=== PATIENT | male | born 1945 | race Caucasian/White ===

== ENCOUNTER 2016-09-27 09:44 | Emergency (ER) | payer OTHER ==
[~2016-09-27] VITALS: Ht 172.7 cm; Wt 73.0 kg
[~2016-09-27 09:44] MED LIST: 12 HOUR DECONG120 M1 PO; ADVAIR 100/501 DISK IH; ADVAIR 500/501 DISK IH; AEROCHAMBER MA1 EACH MC; ALBUTEROL SULF8.5 GM IH; ASPIRIN81 M1 PO; Aspirin PO; BLOOD PRESSURE; CLONIDINE HCL0.2 MG PO; COMBIVENT200 INHALA IH; Combivent IH; Levaquin PO; MOTRIN800 MG PO; Motrin PO; NASONEX17 GM NS; PLAVIX75 MG PO; PREDNISONE20 MG PO; PREDNISONE50 MG PO; PriLOSEC PO; Proventil,Ventolin H IH; SEROQUEL100 MG PO; SEROQUEL200 MG PO; SINGULAR PO; Symbicort 160-4.5 mc IH; THEO-DUR,THEOC200 MG PO; VENTOLIN HFA18 GM IH; ZITHROMAX Z-PA250 MG PO; ZITHROMAX250 MG PO; Zithromax PO; [UNRECOGNIZED DRUG - OTHER] PO; [UNRECOGNIZED DRUG - REMARK]; predniSONE PO
[2016-09-27 12:06] LABS: TROP-I INTERPRETATION NEGATIVE; TROPONIN-I 0.02 ng/mL (0.0-0.30)
[2016-09-27] MEDS ORDERED: PREDNISONE50 MG PO (12:19)
[2016-09-27 12:45] VITALS: BP 129/72
== END 2016-09-27 12:46 | disposition home or self-care (01) ==
LOC: EME 09:44
PROVIDERS: Emergency Medicine
DX: J44.1 Chronic obstructive pulmonary disease with (acute) exacerbation (principal); I25.2 Old myocardial infarction; Z87.891 Personal history of nicotine dependence; Z59.0 Homelessness; Z86.73 Personal history of transient ischemic attack (TIA), and cerebral infarction without residual deficits
CPT/HCPCS: 71010; 84484; 93005; 94640; 99281; 99284; J7512; J7644

== ENCOUNTER 2016-11-13 15:27 | Emergency (ER) | payer OTHER ==
[~2016-11-13] VITALS: Ht 180.3 cm; Wt 73.5 kg
[2016-11-13] MEDS ORDERED: VENTOLIN HFA18 GM IH (20:26)
[2016-11-13] MEDS ORDERED: PREDNISONE20 MG PO (20:26)
[2016-11-13 21:16] VITALS: BP 95/66
== END 2016-11-13 21:18 | disposition home or self-care (01) ==
LOC: EME 15:27
DX: J45.901 Unspecified asthma with (acute) exacerbation (principal); Z76.0 Encounter for issue of repeat prescription; Z91.14 Patient's other noncompliance with medication regimen; J44.9 Chronic obstructive pulmonary disease, unspecified; I10 Essential (primary) hypertension; I25.2 Old myocardial infarction; K21.9 Gastro-esophageal reflux disease without esophagitis; Z86.73 Personal history of transient ischemic attack (TIA), and cerebral infarction without residual deficits; Z87.891 Personal history of nicotine dependence
CPT/HCPCS: 71020; 94640; 94640 76; 99281; 99283; J7512

== ENCOUNTER 2016-12-23 12:46 | Emergency (ER) | payer OTHER ==
[~2016-12-23] VITALS: Ht 154.9 cm; Wt 78.4 kg
[2016-12-23 14:17] LABS: HEMATOCRIT 39.3 % (38.0-50.0); MCHC 32.6 G/DL (30.0-36.0); MCV 89.1 FL (86-99); MEAN PLAT.VOLUME 8.8 uM^3 (9.0-12.4); PLATELET COUNT 300 K/uL (156-360); RBC DIS.WIDTH-CV 13.4 % (11.8-14.6); RBC DIS.WIDTH-SD 43.6 % (39-53); RED BLOOD COUNT 4.41 M/uL (4.00-5.50); WHITE BLOOD COUNT 7.4 K/uL (4.1-10.2)
[2016-12-23 14:29] LABS: CHLORIDE 107 mEq/L (99-109); POTASSIUM 3.9 mEq/L (3.7-5.4); SODIUM 143 mEq/L (136-147)
[2016-12-23 14:31] LABS: GLUCOSE 110 mg/dL (70-99)
[2016-12-23 14:32] LABS: ANION GAP 8 MEQ/L (2-14)
[2016-12-23 14:35] LABS: GFR ESTIMATE (CALCULATED) > 59 mL/min/
[2016-12-23 14:36] LABS: UREA NITROGEN (BUN) 18 mg/dL (9-23)
[2016-12-23 14:59] LABS: TROP-I INTERPRETATION NEGATIVE; TROPONIN-I < 0.01 ng/mL (0.0-0.30)
[2016-12-23] MEDS ORDERED: PREDNISONE20 MG PO ×2 (17:14→18:39)
[2016-12-23 17:45] LABS: TROP-I INTERPRETATION NEGATIVE; TROPONIN-I < 0.01 ng/mL (0.0-0.30)
[2016-12-23 18:48] VITALS: BP 144/88
== END 2016-12-23 18:49 | disposition home or self-care (01) ==
LOC: EME 12:46
PROVIDERS: Nurse Practitioner Family
DX: R07.9 Chest pain, unspecified (principal); R06.02 Shortness of breath; R06.2 Wheezing; J44.9 Chronic obstructive pulmonary disease, unspecified; I10 Essential (primary) hypertension; Z91.14 Patient's other noncompliance with medication regimen; Z95.5 Presence of coronary angioplasty implant and graft; Z87.891 Personal history of nicotine dependence
CPT/HCPCS: 71020; 80048; 84484; 85027; 93005; 94640; 94640 76; 99281; 99284; J7512

== ENCOUNTER 2017-01-16 10:16 | Emergency (ER) | payer OTHER ==
[~2017-01-16] VITALS: Ht 180.3 cm; Wt 79.1 kg
[2017-01-16 11:49] LABS: HEMATOCRIT 38.9 % (38.0-50.0); MCH 29.1 PG (29.0-34.0); MCHC 32.6 G/DL (30.0-36.0); MCV 89.2 FL (86-99); MEAN PLAT.VOLUME 8.5 uM^3 (9.0-12.4); PLATELET COUNT 302 K/uL (156-360); RBC DIS.WIDTH-CV 13.6 % (11.8-14.6); RBC DIS.WIDTH-SD 44.9 % (39-53); RED BLOOD COUNT 4.36 M/uL (4.00-5.50); WHITE BLOOD COUNT 8.3 K/uL (4.1-10.2)
[2017-01-16 12:01] LABS: CHLORIDE 104 mEq/L (99-109); POTASSIUM 3.9 mEq/L (3.7-5.4); SODIUM 143 mEq/L (136-147)
[2017-01-16 12:03] LABS: GLUCOSE 85 mg/dL (70-99)
[2017-01-16 12:05] LABS: ANION GAP 9 MEQ/L (2-14)
[2017-01-16 12:07] LABS: GFR ESTIMATE (CALCULATED) > 59 mL/min/
[2017-01-16 12:08] LABS: UREA NITROGEN (BUN) 16 mg/dL (9-23)
[2017-01-16] MEDS ORDERED: TRUNEB NEBULIZ1 EACH MC (16:24)
[2017-01-16] MEDS ORDERED: PREDNISONE10 MG PO (16:24)
[2017-01-16] MEDS ORDERED: PROVENTIL,2.5 MG/3 M IH (16:24)
[2017-01-16 16:49] VITALS: BP 128/74
== END 2017-01-16 16:50 | disposition home or self-care (01) ==
LOC: EME 10:16
DX: J44.1 Chronic obstructive pulmonary disease with (acute) exacerbation (principal); I11.0 Hypertensive heart disease with heart failure; I50.9 Heart failure, unspecified; I25.2 Old myocardial infarction; Z95.5 Presence of coronary angioplasty implant and graft; K21.9 Gastro-esophageal reflux disease without esophagitis; Z86.73 Personal history of transient ischemic attack (TIA), and cerebral infarction without residual deficits; F32.9 Major depressive disorder, single episode, unspecified; Z87.891 Personal history of nicotine dependence
CPT/HCPCS: 71020; 80048; 85027; 94640; 94640 76; 99281; 99284; J2930; J7030

== ENCOUNTER 2017-05-11 08:18 | Emergency (ER) | payer OTHER ==
[~2017-05-11] VITALS: Ht 180.3 cm; Wt 73.6 kg
[~2017-05-11 08:18] MED LIST changes: +PREDNISONE10 MG PO; +PROVENTIL,2.5 MG/3 M IH; +TRUNEB NEBULIZ1 EACH MC
[2017-05-11 08:38] LABS: HEMATOCRIT 45.1 % (38.0-50.0); MCH 29.4 PG (29.0-34.0); MEAN PLAT.VOLUME 8.8 uM^3 (9.0-12.4); PLATELET COUNT 299 K/uL (156-360); RED BLOOD COUNT 5.07 M/uL (4.00-5.50); WHITE BLOOD COUNT 7.4 K/uL (4.1-10.2)
[2017-05-11 08:47] LABS: CHLORIDE 102 mEq/L (99-109); SODIUM 142 mEq/L (136-147)
[2017-05-11 08:48] LABS: GLUCOSE 107 mg/dL (70-99)
[2017-05-11 08:50] LABS: ANION GAP 11 MEQ/L (2-14)
[2017-05-11 08:52] LABS: GFR ESTIMATE (CALCULATED) > 59 mL/min/
[2017-05-11 08:53] LABS: UREA NITROGEN (BUN) 17 mg/dL (9-23)
[2017-05-11 08:58] LABS: TROP-I INTERPRETATION NEGATIVE; TROPONIN-I < 0.01 ng/mL (0.0-0.30)
[2017-05-11] MEDS ORDERED: PROVENTIL HFA6.7 GM IH (10:19)
[2017-05-11 10:58] VITALS: BP 113/78
== END 2017-05-11 11:00 | disposition home or self-care (01) ==
LOC: EME 08:18
PROVIDERS: Emergency Medicine
DX: J44.9 Chronic obstructive pulmonary disease, unspecified (principal); R10.9 Unspecified abdominal pain; M25.519 Pain in unspecified shoulder; Z87.891 Personal history of nicotine dependence
CPT/HCPCS: 71020; 80048; 84484; 85027; 93005; 94640; 99202; 99281; 99285; J1100; J7644

== ENCOUNTER 2017-05-15 14:17 | Observation (INO) | payer OTHER ==
[~2017-05-15] VITALS: Ht 180.3 cm; Wt 77.8 kg
[~2017-05-15 14:17] MED LIST changes: +PROVENTIL HFA6.7 GM IH
[2017-05-15 15:11] LABS: BASOPHIL COUNT 0.1 K/uL (0-0.1); EOSINOPHIL COUNT 1.2 K/uL (0-0.3); HEMATOCRIT 44.4 % (38.0-50.0); IMMATURE GRANULOCYTE (%) 0.2 % (0.0-0.7); INSTRUMENT ABS NEUTROPHIL CT 4.4 K/uL; LYMPHOCYTE COUNT 2.1 K/uL (1.0-2.8); MCH 29.4 PG (29.0-34.0); MCHC 33.3 G/DL (30.0-36.0); MCV 88.3 FL (86-99); MEAN PLAT.VOLUME 8.8 uM^3 (9.0-12.4); MONOCYTE (%) 6.9 % (3-12); MONOCYTE COUNT 0.6 K/uL (0-0.8); NEUTROPHIL (%) 53.5 % (45-76); NEUTROPHIL COUNT 4.4 K/uL (1.8-6.4); PLATELET COUNT 362 K/uL (156-360); RBC DIS.WIDTH-CV 12.5 % (11.8-14.6); RBC DIS.WIDTH-SD 40.7 % (39-53); RED BLOOD COUNT 5.03 M/uL (4.00-5.50); WHITE BLOOD COUNT 8.3 K/uL (4.1-10.2)
[2017-05-15 15:23] LABS: CHLORIDE 105 mEq/L (99-109); POTASSIUM 4.6 mEq/L (3.7-5.4); SODIUM 137 mEq/L (136-147)
[2017-05-15 15:26] LABS: GLUCOSE 98 mg/dL (70-99)
[2017-05-15 15:27] LABS: ANION GAP 9 MEQ/L (2-14)
[2017-05-15 15:29] LABS: ALKALINE PHOSPHATASE 71 IU/L (3-129); SERUM ETHYL ALCOHOL < 10 mg/dL
[2017-05-15 15:30] LABS: GFR ESTIMATE (CALCULATED) > 59 mL/min/
[2017-05-15 15:31] LABS: DIRECT BILIRUBIN 0.3 mg/dL (0.0-0.3); UREA NITROGEN (BUN) 15 mg/dL (9-23)
[2017-05-15 15:33] LABS: LIPASE 51 U/L (1.0-51.0)
[2017-05-15 15:36] LABS: TROP-I INTERPRETATION NEGATIVE; TROPONIN-I < 0.01 ng/mL (0.0-0.30)
[2017-05-15 21:39] VITALS: BP 115/75
[2017-05-15 23:43] VITALS: BP 111/72
[2017-05-16 03:09] VITALS: BP 122/71
[2017-05-16 05:29] LABS: HEMATOCRIT 41.6 % (38.0-50.0); MCH 29.1 PG (29.0-34.0); MCHC 32.9 G/DL (30.0-36.0); MCV 88.5 FL (86-99); MEAN PLAT.VOLUME 8.9 uM^3 (9.0-12.4); PLATELET COUNT 323 K/uL (156-360); RBC DIS.WIDTH-CV 12.6 % (11.8-14.6); RBC DIS.WIDTH-SD 41.3 % (39-53); WHITE BLOOD COUNT 7.4 K/uL (4.1-10.2)
[2017-05-16 05:49] LABS: ANION GAP 9 MEQ/L (2-14); CHLORIDE 104 MEQ/L (99-109); GFR ESTIMATE (CALCULATED) > 59 mL/min/; GLUCOSE 151 mg/dL (70-99); POTASSIUM 5.2 MEQ/L (3.7-5.4); SAMPLE HEMOLYSIS CHECK 0; SAMPLE ICTERIC CHECK 0; SAMPLE LIPEMIA CHECK 0; SODIUM 139 MEQ/L (136-147); UREA NITROGEN (BUN) 19 mg/dL (9-23)
[2017-05-16] MEDS ORDERED: AMOX TR-K CLV1 EAC4 PO (09:35)
[2017-05-16] MEDS ORDERED: BREO ELLIPTA I1 EACH IH (09:38)
[2017-05-16] MEDS ORDERED: PREDNISONE10 MG PO (09:38)
== END 2017-05-16 11:24 | disposition home or self-care (01) ==
LOC: EME 14:17 → EDOF 20:27 → 5WEST 20:27 → ENRESERV 20:41 → 5WEST 21:37
PROVIDERS: Emergency Medicine; Hospitalist
DX: J45.901 Unspecified asthma with (acute) exacerbation (principal); J20.9 Acute bronchitis, unspecified; R09.02 Hypoxemia; I10 Essential (primary) hypertension; I25.10 Atherosclerotic heart disease of native coronary artery without angina pectoris; I25.2 Old myocardial infarction; Z95.5 Presence of coronary angioplasty implant and graft; F60.9 Personality disorder, unspecified; F25.9 Schizoaffective disorder, unspecified; Z91.19 Patient's noncompliance with other medical treatment and regimen; Z91.14 Patient's other noncompliance with medication regimen; Z87.891 Personal history of nicotine dependence; Z86.73 Personal history of transient ischemic attack (TIA), and cerebral infarction without residual deficits
CPT/HCPCS: 71020; 71275; 80048; 80076; 83690; 83880; 84484; 85025; 85027; 87070; 87205; 93005; 94640; 94640 76; 99202; 99281; 99285; G0378; G0480; J2930